=== PATIENT | male | born 1955 | race Caucasian/White ===

== ENCOUNTER → 2019-07-18 | Outpatient (CLI) | payer OTHER ==
[~2019-07-18] MED LIST: IBUP600 PO; LANS1COM10 PO; OMEP20ER
[2019-07-18 11:21] LABS: BASOPHILS ABSOLUTE AUTO 0.02 K/mm3 (0.00-0.23); BASOPHILS PERCENT AUTO 0 % (0-2); EOSINOPHILS ABSOLUTE AUTO 0.07 K/mm3 (0.00-0.68); EOSINOPHILS PERCENT AUTO 1 % (0-6); Hematocrit 49.4 % (37.0-53.0); Hemoglobin 16.8 g/dL (13.5-17.5); IMMATURE GRAN ABSOLUTE AUTO 0.01 K/mm3 (0.00-0.10); IMMATURE GRAN PERCENT AUTO 0 % (0-1); LYMPHOCYTES ABSOLUTE AUTO 1.81 K/mm3 (0.84-5.20); LYMPHOCYTES PERCENT AUTO 27 % (21-46); MONOCYTES ABSOLUTE AUTO 0.53 K/mm3 (0.16-1.47); MONOCYTES PERCENT AUTO 8 % (4-13); Mean Corpuscular HGB 31.9 pg (26.0-34.0); Mean Corpuscular Volume 94 fL (80-100); Mean Platelet Volume 9.6 fL (9.1-12.4); NEUTROPHILS ABSOLUTE AUTO 4.24 K/mm3 (1.96-9.15); NEUTROPHILS PERCENT AUTO 64 % (41-73); Platelet Count 182 K/mm3 (150-400); RDW Coefficient Variation 13.2 % (11.7-14.2); RDW Standard Deviation 45.4 fL (35.1-46.3); Red Blood Cell Count 5.27 M/mm3 (4.30-5.90); White Blood Cell Count 6.68 K/mm3 (4.00-11.30)
[2019-07-18 11:34] LABS: Alanine Aminotransfer (ALT/SGP 56 U/L (12-78); Albumin, Blood 3.9 g/dL (3.4-5.0); Alk Phos 111 U/L (40-126); Anion Gap 7 mmol/L (6-16); Aspartate Aminotrans (AST/SGOT 27 U/L (12-37); Bilirubin, Total 0.8 mg/dL (0.1-1.0); Blood Urea Nitrogen 23 mg/dL (8-24); CO2, Blood 30 mmol/L (21-32); Calcium, Blood 8.9 mg/dL (8.5-10.1); Chloride, Blood 105 mmol/L (98-108); Creatinine, Blood 1.21 mg/dL (0.60-1.20); Globulin, Blood 3.8 g/dL (2.2-4.0); Glomerular Filtration Rate >60 (60-); Glucose, Blood 116 mg/dL (70-99); Potassium, Blood 4.7 mmol/L (3.5-5.5); Sodium, Blood 142 mmol/L (136-145); Total Protein, Blood 7.7 g/dL (6.4-8.2); Troponin I <0.017 ng/mL (0.000-0.040)
== END | disposition home or self-care (01) ==
LOC: LAB SHORT 11:16 → LAB EV 11:16
PROVIDERS: Physician Assistant Surgical
DX: R10.13 Epigastric pain (principal)
CPT/HCPCS: 80053; 83690; 84484; 85025

== ENCOUNTER → 2020-09-30 | Outpatient (CLI) | payer OTHER ==
[2020-09-30 15:17] LABS: BASOPHILS ABSOLUTE AUTO 0.04 K/mm3 (0.00-0.23); BASOPHILS PERCENT AUTO 0 % (0-2); EOSINOPHILS ABSOLUTE AUTO 0.13 K/mm3 (0.00-0.68); EOSINOPHILS PERCENT AUTO 1 % (0-6); Hematocrit 49.6 % (37.0-53.0); Hemoglobin 17.1 g/dL (13.5-17.5); IMMATURE GRAN ABSOLUTE AUTO 0.03 K/mm3 (0.00-0.10); IMMATURE GRAN PERCENT AUTO 0 % (0-1); LYMPHOCYTES PERCENT AUTO 29 % (21-46); MONOCYTES ABSOLUTE AUTO 0.84 K/mm3 (0.16-1.47); MONOCYTES PERCENT AUTO 9 % (4-13); Mean Corpuscular HGB 32.1 pg (26.0-34.0); Mean Corpuscular HGB Conc 34.5 g/dL (31.5-36.5); Mean Corpuscular Volume 93 fL (80-100); Mean Platelet Volume 9.5 fL (9.1-12.4); NEUTROPHILS ABSOLUTE AUTO 5.49 K/mm3 (1.96-9.15); NEUTROPHILS PERCENT AUTO 60 % (41-73); Platelet Count 184 K/mm3 (150-400); RDW Coefficient Variation 13.2 % (11.7-14.2); RDW Standard Deviation 44.8 fL (35.1-46.3); Red Blood Cell Count 5.33 M/mm3 (4.30-5.90); White Blood Cell Count 9.23 K/mm3 (4.00-11.30)
[2020-09-30 15:34] LABS: Albumin, Blood 3.9 g/dL (3.4-5.0); Bun/Creatinine Ratio 18.5 (12.0-20.0); Calcium, Blood 9.3 mg/dL (8.5-10.1); Creatinine, Blood 1.3 mg/dL (0.60-1.20); Globulin, Blood 3.8 g/dL (2.2-4.0); Potassium, Blood 5.3 mmol/L (3.5-5.5); Thyroid Stimulating Hormone 1.984 uIU/mL (0.360-4.800); Total Protein, Blood 7.7 g/dL (6.4-8.2)
== END | disposition home or self-care (01) ==
LOC: LAB 15:11 → LAB SHORT 15:11 → LAB EV 15:11
PROVIDERS: Physician Assistant
DX: R10.9 Unspecified abdominal pain (principal); R53.83 Other fatigue
CPT/HCPCS: 80053; 83690; 84443; 85025

== ENCOUNTER → 2020-11-06 | Outpatient (CLI) | payer OTHER | LOC: LAB 17:37 → LAB SHORT 17:37 | DX: M70.21 Olecranon bursitis, right elbow (principal) | CPT/HCPCS: 87070; 87075; 87205 ==

== ENCOUNTER 2023-11-22 03:24 | Inpatient (IN) | payer OTHER ==
[~2023-11-22] VITALS: Ht 175.3 cm; Wt 103.7 kg
[2023-11-22 03:46] LABS: BASOPHILS ABSOLUTE AUTO 0.03 K/mm3 (0.00-0.23); BASOPHILS PERCENT AUTO 0 % (0-2); EOSINOPHILS ABSOLUTE AUTO 0.08 K/mm3 (0.00-0.68); EOSINOPHILS PERCENT AUTO 1 % (0-6); Hematocrit 49.2 % (37.0-53.0); Hemoglobin 16.7 g/dL (13.5-17.5); IMMATURE GRAN ABSOLUTE AUTO 0.03 K/mm3 (0.00-0.10); IMMATURE GRAN PERCENT AUTO 0 % (0-1); LYMPHOCYTES ABSOLUTE AUTO 2.47 K/mm3 (0.84-5.20); LYMPHOCYTES PERCENT AUTO 23 % (21-46); MONOCYTES ABSOLUTE AUTO 1.01 K/mm3 (0.16-1.47); MONOCYTES PERCENT AUTO 9 % (4-13); Mean Corpuscular HGB 31.6 pg (26.0-34.0); Mean Corpuscular HGB Conc 33.9 g/dL (31.5-36.5); Mean Corpuscular Volume 93 fL (80-100); Mean Platelet Volume 9.3 fL (9.1-12.4); NEUTROPHILS ABSOLUTE AUTO 7.25 K/mm3 (1.96-9.15); NEUTROPHILS PERCENT AUTO 67 % (41-73); Platelet Count 168 K/mm3 (150-400); RDW Coefficient Variation 13.1 % (11.7-14.2); RDW Standard Deviation 44.7 fL (35.1-46.3); Red Blood Cell Count 5.29 M/mm3 (4.30-5.90); White Blood Cell Count 10.87 K/mm3 (4.00-11.30)
[2023-11-22 04:04] LABS: Albumin, Blood 3.8 g/dL (3.4-5.0); Bilirubin, Total 0.8 mg/dL (0.1-1.0); Calcium, Blood 9.4 mg/dL (8.5-10.1); Creatinine, Blood 1.39 mg/dL (0.60-1.20); Globulin, Blood 3.8 g/dL (2.2-4.0); Potassium, Blood 4.3 mmol/L (3.5-5.5); Total Protein, Blood 7.6 g/dL (6.4-8.2)
[2023-11-22] MEDS ORDERED: Ondansetron HCl 2 MG / ML 2ML Vial IV ONE (04:05)
[2023-11-22] MEDS ORDERED: Morphine Sulfate 4 MG/1 ML Injection IV ONE (04:05)
[2023-11-22] MEDS ORDERED: NS 1,000 ML IV SCH ×4 (04:05→11:20)
[2023-11-22] MEDS ORDERED: Piperacillin/Tazobactam Sod 4.5 GM in NS 100 ML IV ONE (06:10)
[2023-11-22] MEDS ORDERED: HYDROmorphone HCl/Pf 1MG SYR IV PRN (06:10)
[2023-11-22] MEDS ORDERED: Ondansetron HCl 2 MG / ML 2ML Vial IV PRN (06:10)
[2023-11-22 06:33] LABS: Source, Urine Clean Catch
[2023-11-22 06:38] LABS: Appearance, Urine Clear (Clear); Bilirubin, Urine Neg (Neg); Blood, Urine 1+ (Neg); Color, Urine Yellow (P-Yellow); Glucose Qualitative, Urine Neg (Neg); Ketones, Urine Neg (Neg); Leukocyte Esterase, Urine Neg (Neg); Nitrite, Urine Neg (Neg); Protein, Urine Neg (Neg); Urobilinogen, Urine NORM (Normal)
[2023-11-22 07:10] LABS: Bacteria Not Seen /hpf; Red Blood Cells, Urine 0-2 /hpf (0-2); Squamous Epithelial Cells Not Seen /hpf (Few); White Blood Cells, Urine 0-2 /hpf (0-5)
[2023-11-22 08:08] VITALS: BP 170/89
--- NOTE | 2023-11-22 10:38 | NUR ---
NOTE: DR. FLOYD IN ROM AT [address] FLOYD SPOKE TO PATIENT c PLAN OF CARE. PER DR. FLOYD START PATIENT ON CL DIET FOR NOW, NPO AT OR FOR LUIS CONTRERAS IN AM.
[2023-11-22] MEDS ORDERED: Acetaminophen 325 MG TABLET PO PRN (11:20)
[2023-11-22] MEDS ORDERED: HYDROcodone 10-APAP 325 TAB PO PRN (11:20)
[2023-11-22] MEDS ORDERED: FLU VACC TS2024-25(6MOS UP)/PF 45 MCG/0.5 ML SYRINGE IM SCH (11:20)
[2023-11-22] MEDS ORDERED: Ampicillin Sod/Sulbactam Sod 3 GM in NS 100 ML IV SCH (12:00)
[2023-11-22 15:51] VITALS: BP 133/80
--- NOTE | 2023-11-22 17:46 | NUR ---
SHIFT SUMMARY: PATIENT A/OX4, PLEASANT AND COOPERATIVE c CARE. PATIENT REPORTS PAIN TO ABDOMEN c CL INTAKE. PATIENT MEDICATED X1 FOR PAIN TO ABDOMEN c GOOD EFFECT. PATIENT CONTINENT OF BLADDER, AMBULATES TO BATHROOM INDEPENDENTLY T/O SHIFT. PATIENT RECEIVED IV ABX, PIV TO LAC INFUSING NS AT 100 MLS/HR. SCD'S IN PLACED TO BLE'S. PLAN TO HAVE PATIENT PO AT [place] FOR LAP BEN IN AM. VITAL SIGNS REVIEWED. CALL LIGHT IN REACH.
[2023-11-22 20:01] VITALS: BP 139/81
[2023-11-23] VITALS (17 sets, daily range): BP systolic 105–142; BP diastolic 68–86
--- NOTE | 2023-11-23 04:11 | NUR ---
PT ALERT AND ORIENTED X4 AT SHIFT CHANGE. PT AFFECT PLEASANT. REMAINED NPO AFTER MIDNIGHT. PT OOB UP TO SHOWER INDEPENDENTLY. PT RESTING QUIETLY IN BED WITH EYS CLOSED. PT CO NAUSEA WITH PO.
[2023-11-23 05:27] LABS: Albumin/Globulin Ratio 0.9 (0.8-1.8); Bilirubin, Total 1.9 mg/dL (0.1-1.0); Bun/Creatinine Ratio 12.4 (12.0-20.0); Calcium, Blood 8.3 mg/dL (8.5-10.1); Creatinine, Blood 1.21 mg/dL (0.60-1.20); Globulin, Blood 3.4 g/dL (2.2-4.0); Potassium, Blood 3.9 mmol/L (3.5-5.5); Total Protein, Blood 6.4 g/dL (6.4-8.2)
[2023-11-23] MEDS ORDERED: Rocuronium Bromide 10 MG/ML 5ML Injection IV ONE ×2 (09:34→12:46)
[2023-11-23] MEDS ORDERED: Dexamethasone Sod Phos 10 MG/ML 1ML VIAL ONE ×2 (09:34→12:19)
[2023-11-23] MEDS ORDERED: Ondansetron HCl 2 MG / ML 2ML Vial ONE ×2 (09:34→12:19)
[2023-11-23] MEDS ORDERED: propofoL 20 ML IV ONE (09:34)
[2023-11-23] MEDS ORDERED: FentaNYL Citrate 50 MCG/ML 2 ML Injection ONE (09:35)
[2023-11-23] MEDS ORDERED: Lactated Ringer's 1,000 ML IV ONE (10:21)
--- NOTE | 2023-11-23 10:32 | NUR ---
NOTE: PATIENT LEFT THE ROOM AT 1031 TRANSPORTED VIA GURNEY BY VALDEMAR PERALTA TO DAY SURGERY FOR LAP BEN.
--- NOTE | 2023-11-23 10:43 | NUR ---
PT IN PACU FOR PREOP, LUNGS SOUND CLEAR, PAS APPLIED, IV WNL, LR STARTED
--- NOTE | 2023-11-23 10:44 | NUR ---
History, Chart, Medications and Allergies reviewed before start of procedure.Pre-Op teaching done. Pt verbalizes understanding.PT CONFIRMS NPO STATUS
--- NOTE | 2023-11-23 11:20 | NUR ---
Shaun GREEN DIRECTOR CUSTOM AT BEDSIDE CONSULTING PT
[2023-11-23] MEDS ORDERED: Bupivacaine 0.5% HCl 5 MG/ML 30MLVIAL ONE (11:59)
[2023-11-23] MEDS ORDERED: Sugammadex Sodium 200 MG/2ML SDV (100 MG/ML) ONE (12:47)
--- NOTE | 2023-11-23 14:00 | NUR ---
SHIFT/TRANSFERRED NOTE: PATIENT A/OX4, PLEASANT AND COOPERATIVE c CARE. PATIENT DENIES CP/PRESSURE, SOB, N/V AND DIZZINESS. PATIENT REPORTS PAIN 2/10 TO ABDOMEN THIS AM, OFFERED PRN PAIN MEDS PER EMAR, BUT DECLINED. PATIENT HAS BEEN NPO SINCE [place]. PATIENT CONTINENT OF BLADDER, AMBULATES TO BATHROOM INDEPENDENTLY T/O SHIFT. PATIENT LEFT THE ROOM AT 1031 TO DAY SURGERY FOR LAP BEN. PATIENT TRANSFERRED TO SURGICAL UNIT. TELEPHONE REPORT GIVEN TO GRAIN PICKERLUANN.
--- NOTE | 2023-11-23 14:45 | NUR ---
MEDICAL TO OR TO ROOM 211 PT TAKEN FROM MEDICAL FLOOR FOR SURGERY, POST PACU HE WAS BROUGHT OUT TO ROOM 211, A/OX4 AT TIME OF ARRIVAL, PT ON A GURNEY BUT ABLE TO ASSIST WITH SLIDING OVER TO HIS NEW BED, 3 LAP SITES C/D/I WITH GAUZE/TEGADERM, A ANNY DRAIN RLQ WITH SS DRAINAGE IN THE BULB. DISCUSSED PLAN OF CARE FOR THE REST OF THE DAY, NO QUESTIONS AT THIS TIME, POST OP VITALS STARTED.
[2023-11-24 05:25] VITALS: BP 119/66
--- NOTE | 2023-11-24 06:14 | NUR ---
SHIFT SUMMARY POD 1 S/P LAP BEN. DRESSINGS CDI WITH NO DRAINAGE NOTED. ANNY DRAINING TO COMPRESSION WITH SS FLUID, DRESSING CDI. DENIES PAIN T/O SHIFT. AMBULATING IND. ABX INFUSED PER ORDERS. VOIDING IND AND REPORTS PASSING FLATUS. TEMP OF 100.6 AT 1330, MEDICATED PER EMAR AND ICE THERAPY. REPEAT TEMP OF 97.9 AT 0530. PT DENIES NEEDS AT THIS TIME AND IS CURRENTLY RESTING IN BED WITH CALL LIGHT IN REACH. WILL REPOR TO ONCOMING RN
[2023-11-24 07:21] VITALS: BP 126/68
--- NOTE | 2023-11-24 11:09 | NUR ---
DISCHARGE PT PROVIDED WITH WRITTEN AND VERBAL DISCHARGE INSTRUCTIONS, PT REPORTED UNDERSTANDING. PT AMBULATED OUT AT 1105 INDEPENDENTLY.
== END 2023-11-24 11:06 | disposition home or self-care (01) | DRG 419 ==
LOC: ER 03:24 → MEDS 06:10 → SURS 11-23 14:34
PROVIDERS: Student in an Organized Health Care Education/Training Program; ADMIT Surgery
PROC: BF502Z0 Other Imaging of Bile Ducts using Fluorescing Agent, Intraoperative (ICD-10-PCS; 2023-11-23)
PROC: 0FT44ZZ Resection of Gallbladder, Percutaneous Endoscopic Approach (ICD-10-PCS; principal; 2023-11-23 08:30)
DX: K80.12 Calculus of gallbladder with acute and chronic cholecystitis without obstruction (principal); K21.9 Gastro-esophageal reflux disease without esophagitis; E66.9 Obesity, unspecified; Z87.19 Personal history of other diseases of the digestive system; Z86.0100 Personal history of colon polyps, unspecified; Z87.891 Personal history of nicotine dependence; Z68.34 Body mass index [BMI] 34.0-34.9, adult
CPT/HCPCS: 36415; 71046; 74177; 76705; 80053; 81001; 83690; 84484; 85025; 88304; 93005; 93010; 96361; 96365-59; 96375; 99285-25; A9270; C1729; C1894; G0378; J0295; J1100; J2270; J2405; J2543; J2704; J3010; J7030; J7120; Q9967